=== PATIENT | male | born 1995 | race Caucasian/White ===

== ENCOUNTER 2025-05-11 08:21 | Outpatient (CLI) | payer BC | END 2025-05-11 08:22 | disposition home or self-care (01) | LOC: CSHSLEEP 08:21 | PROVIDERS: ATTEND Nurse Practitioner Family | DX: G47.33 Obstructive sleep apnea (adult) (pediatric) (principal); R53.83 Other fatigue; R09.89 Other specified symptoms and signs involving the circulatory and respiratory systems; R06.83 Snoring | CPT/HCPCS: 95811 ==